=== PATIENT | female | born 1960 | race Caucasian/White ===

== ENCOUNTER 2019-01-11 15:21 | Emergency (ER) | payer BC ==
--- OUTSIDE RECORDS SUMMARY | 2019-01-11 15:31 | XMS REPORT | Continuity of Care Document ---
:1960 External Reference #:[id number] Author Name Rita Bishop Care Team Providers Name Role Phone Prateek Ignacio MD Primary Care Physician Unavailable Payers Date Identification Numbers Payment Provider Subscriber Policy Number: [id number] [employer] Ruthie Sandhu PayID: [id number] [address] [address] [place] [address] Effective: 2001 Policy Number: [id number] BS Of BEKA Sandhu Expires: 2019 Group Number: [id number] [address] [address] Group Name: BS [place] [id number] PayID: [id number] Problems Active Problems Provider Date Refractory migraine without aura Heather Howard M.D. Onset: 11/18/2014 Migraine without aura Heather Howard M.D. Onset: 10/29/2015 Low back pain Miguel Angel Stanford M.D. Onset: 02/07/2018 Resolved Problems Refractory migraine without aura Heather Howard M.D. Onset: 10/29/2015 Resolved: 11/09/2015 Note: no longer refractory....delete. Family History Date Family Member(s) Observation Comments General Diabetes General Hypertension General Heart Disease General GA General Stroke General Cancer Father Diabetes Father Hypertension Father Heart Disease Mother Diabetes Mother Hypertension Siblings 5 First Brother Diabetes First Brother Heart Disease First Brother Stroke Second Brother Heart Disease Second Brother [place] Social History Type Date Description Comments Sex Unknown Marital Status Single Lives With Son Occupation [employer] Tobacco Use Start: Unknown Never Smoked Cigarettes Smoking Status Reviewed: 07/09/18 Never Smoked Cigarettes ETOH Use Occasionally consumes wine Tobacco Use Start: Unknown Patient has never smoked Recreational Drug Use Never Used Drugs Exercise Type/Frequency Does not exercise Allergies, Adverse Reactions, Alerts Active Allergies Reaction Severity Comments Date Penicillin 08/31/2012 Sulfa Antibiotics 08/31/2012 Levaquin 08/31/2012 Doxycycline 04/03/2018 Medications Active Medications SIG Qnty Indications Ordering Date Provider Bupropion HCL ER (XL) 1 by mouth once a 180tabs Zo Roberts, 12/20/2013 day M.D. 150mg Tablets ER 24HR Sumatriptan use one unit as 18units Heather Killian 09/13/2012 5mg/Act directed prn Ritesh Howard Solution migraine Magnesium once a day Unknown Capsules Fluticasone 2 sprays each Edson Propionate nare once daily MD Miguel Angel 50mcg/Act Suspension Ventolin HFA 2 puffs as needed Edson MD Miguel Angel 108(90Base) mcg/Act Aerosol Ranitidine HCL 1 tab by mouth Prateek Ignacio MD 150mg twice daily Capsules Valacyclovir HCL Once daily Unknown 500mg Tablets Loratadine 1 by mouth every Unknown 10mg Tablets day as needed Vitamin D 1 by mouth every Unknown 2000Unit day Capsules Multivitamin Adult 1 by mouth every Unknown day Tablets History Medications Zonisamide take 1 by mouth a 60caps Michael Jesus, 02/07/2018 - 100mg day M.D. 04/23/2018 Capsules Pamelor 1-2 caps every 60caps 346.91 Heather Howard, 11/18/2014 - 10mg night as directed M.D. 04/22/2015 Capsules Bupropion HCL XL 1 po bid 60tabs Heather Howard, 03/01/2013 - M.D. 12/20/2013 150mg Tablets ER 24HR Pamelor 2 - 3 caps every 90caps Heather Howard, 08/31/2012 - 10mg night as directed M.D. 12/12/2013 Capsules Zomig 1 unit intranasal 12units Heather Howard, 08/31/2012 - 5mg as needed M.D. 06/14/2013 Solution Zonisamide 3 caps by mouth 90caps Josuekhang Abdoulaye, 07/03/2012 - 100mg every day M.D. 02/07/2018 Capsules Wellbutrin SR 1 tab by mouth 60tabs Heather Howard, 07/03/2012 - twice a day M.D. 03/01/2013 150mg Tablets ER 12HR Flonase 2 sprays in each 50mcg Heather Howard, 05/01/2012 - 50mcg/Act nostril q am M.D. 08/31/2012 Suspension Estradiol 1 po qd 90tabs Unknown - 0.5mg 01/28/2018 Tablets Omeprazole 1 po qd 30caps Unknown - 40mg 01/25/2013 Capsules Vitamin B-Complex 1 po qd Unknown - 11/02/2016 Tablets Vitamin C 1 po qd Unknown - 500mg 11/02/2016 Tablets Calcium 1 po qd Unknown - 1200mg 01/28/2018 Tablets Omeprazole 2 po qd Unknown - 20mg 04/23/2014 Capsules Omeprazole 1 by mouth every Unknown - 20mg day 05/09/2018 Capsules Vitamin E 3 by mouth every Unknown - 400Unit day 11/02/2016 Capsules Vital Signs Date Vital Result Comment 01/07/2019 1:57pm Height 63 inches 5'3" Weight 220.00 lb BP Systolic Sitting 144 mmHg BP Diastolic Sitting 80 mmHg Pain Level 3 BMI (Body Mass Index) 39.0 kg/m2 07/09/2018 10:07am Height 63 inches 5'3" Weight 220.00 lb Heart Rate 74 /min BP Systolic Sitting 138 mmHg BP Diastolic Sitting 92 mmHg Pain Level 3 BMI (Body Mass Index) 39.0 kg/m2 05/17/2018 9:57am Height 63 inches 5'3" Weight 220.00 lb Heart Rate 60 /min BP Systolic 144 mmHg BP Diastolic 78 mmHg Respiratory Rate 14 /min BMI (Body Mass Index) 39.0 kg/m2 04/03/2018 9:21am Height 63 inches 5'3" Weight 213.00 lb BP Systolic Sitting 124 mmHg BP Diastolic Sitting 80 mmHg Pain Level 4 BMI (Body Mass Index) 37.7 kg/m2 02/07/2018 11:11am Height 63 inches 5'3" Weight 213.25 lb Heart Rate 62 /min BP Systolic Sitting 112 mmHg BP Diastolic Sitting 64 mmHg Respiratory Rate 16 /min O2 % BldC Oximetry 98 % BMI (Body Mass Index) 37.8 kg/m2 11/03/2016 8:33am Height 63 inches 5'3" Weight 204.00 lb Heart Rate 64 /min BP Systolic Sitting 118 mmHg BP Diastolic Sitting 72 mmHg Respiratory Rate 16 /min Pain Level 4 headache BMI (Body Mass Index) 36.1 kg/m2 10/29/2015 8:36am Height 63 inches 5'3" Weight 182.00 lb Heart Rate 66 /min BP Systolic Sitting 120 mmHg BP Diastolic Sitting 70 mmHg Respiratory Rate 17 /min BMI (Body Mass Index) 32.2 kg/m2 04/23/2015 8:41am Height 63 inches 5'3" Weight 173.00 lb Heart Rate 68 /min BP Systolic Sitting 132 mmHg BP Diastolic Sitting 72 mmHg Respiratory Rate 14 /min BMI (Body Mass Index) 30.6 kg/m2 11/18/2014 8:46am Height 63 inches 5'3" Weight 158.00 lb Heart Rate 64 /min BP Systolic Sitting 126 mmHg BP Diastolic Sitting 72 mmHg Respiratory Rate 16 /min BMI (Body Mass Index) 28.0 kg/m2 05/20/2014 11:29am Height 63 inches 5'3" Weight 158.00 lb Heart Rate 60 /min BP Systolic Sitting 112 mmHg BP Diastolic Sitting 70 mmHg Respiratory Rate 12 /min BMI (Body Mass Index) 28.0 kg/m2 12/20/2013 8:35am Height 63 inches 5'3" Weight 203.00 lb Heart Rate 76 /min BP Systolic Sitting 120 mmHg BP Diastolic Sitting 70 mmHg Respiratory Rate 16 /min BMI (Body Mass Index) 36.0 kg/m2 06/14/2013 8:35am Heart Rate 76 /min BP Systolic Sitting 150 mmHg BP Diastolic Sitting 80 mmHg Respiratory Rate 18 /min 01/25/2013 10:23am Heart Rate 75 /min BP Systolic Sitting 118 mmHg BP Diastolic Sitting 76 mmHg Respiratory Rate 15 /min 08/31/2012 10:29am Heart Rate 72 /min BP Systolic Sitting 132 mmHg BP Diastolic Sitting 88 mmHg Respiratory Rate 16 /min Encounters Type Date Location Provider Dx Diagnosis Office Visit 07/09/2018 [facility] M54.5 Low back pain 10:00a Of [place] Velásquez MD M47.896 Other spondylosis, lumbar region M48.061 Spinal stenosis, lumbar region without neurogenic riley Office Visit 05/17/2018 Fabi Michelle G43.009 Migraine w/o 10:00a Neurologic Ritesh Stanford aura, not [facility] intractable, w/o status migrainosus M54.5 Low back pain Office Visit 04/03/2018 9:30a [facility] M54.5 Low back Services [facility] [place] Velásquez MD pain M47.896 Other spondylosis, lumbar region M48.061 Spinal stenosis, lumbar region without neurogenic riley Office 02/07/2018 [place] Michelle G43.009 Migraine w/o Visit 11:15a [facility] Ritesh Stanford aura, not [facility] [employer] [facility] intractable, w/o status migrainosus M54.5 Low back pain Office Visit 11/03/2016 Fabi Killian G43.009 Migraine w/o aura, 8:30a Iris Howard M.D. not intractable, [facility] w/o status migrainosus Office Visit 10/29/2015 Fabi Killian G43.009 Migraine w/o aura, 8:30a Iris Howard M.D. not intractable, [facility] w/o status migrainosus Office Visit 04/23/2015 Fabi Killian G43.009 Migraine w/o aura, 8:45a Iris Howard M.D. not intractable, [facility] [facility] w/o status migrainosus Office Visit 11/18/2014 Fabi Killian 346.91 Migraine Unspec W/ 8:45a Iris Howard M.D. Intractable W/O [facility] Status Migrainosus 346.11 Migraine W/O Aura W/Intractable W/O Status Migrainosus Office Visit 05/20/2014 11:15a Fabi Killian 346.10 Migraine Common Iris Howard M.D. W/O Intractable [facility] W/O Status Migrainosus Office Visit 12/20/2013 12:15p Fabi Killian 346.90 Migraine Unspec Neurologic Ritesh Howard W/O Intractable [facility] [facility] W/O Status Migrainosus Office Visit 06/14/2013 8:30a Fabi Killian 346.90 Migraine Unspec Neurologic Ritesh Howard W/O Intractable [facility] [facility] W/O Status Migrainosus 339.10 Tension Type Headache, Unspecified Office Visit 01/25/2013 10:30a Fabi Killian 346.90 Migraine Unspec Neurologic Ritesh Howard W/O Intractable [facility] W/O Status Migrainosus 339.10 Tension Type Headache, Unspecified Office Visit 08/31/2012 10:30a Fabi Killian 346.91 Migraine Unspec Neurologic Ritesh Howard W/ Intractable [facility] W/O Status Migrainosus Office Visit 07/03/2012 8:30a Fabi Lema.90 Migraine Unspec Neurologic Ritesh Howard W/O Intractable [facility] [facility] W/O Status Migrainosus Office Visit 05/01/2012 8:30a Fabi Lema.[place] Migraine Unspec Neurologic Ritesh Howard W/O Intractable [facility] W/O Status Migrainosus Plan of Treatment Future Appointment(s):07/05/2019 2:30 pm - Andrea Velásquez MD at [facility]01/07/2019 - Andrea Velásquez MDM54.5 Low back painNew Xrays:SP Lumbar Ap//Lat 2-3 Views, Ordered: 01/07/19Follow up:RV in 6 [id number] Other spondylosis, lumbar [id number] Spinal stenosis, lumbar region without neurogenic riley
[2019-01-11 15:43] VITALS: BP 141/82
--- NOTE | 2019-01-25 18:40 | UC ---
Complaint Female HPI - HPI Summary HPI Summary: Urinary frequency and mild burning on urination the past few days, pt would also like blood sugar checked. No fever, chills or back pain. - History Of Current Complaint Chief Complaint: UCGU Stated Complaint: URINARY Time Seen by Provider: 01/11/19 15:42 Hx Obtained From: Patient ?: No Onset/Duration: Gradual Onset Timing: Intermittent Severity Initially: Mild Severity Currently: Mild - Doesn't have burning with every episode of urinating Pain Intensity: 2 Pain Scale Used: 0-10 Numeric Character: Burning Aggravating Factor(s): Urination Alleviating Factor(s): Nothing Associated Signs And Symptoms: Positive: Negative - Allergies/Home Medications Allergies/Adverse Reactions: Allergies Allergy/AdvReac Type Severity Reaction Status Date / Time Penicillins Allergy Rash Verified 01/11/19 15:43 Sulfa (Sulfonamide Allergy Rash Verified 01/11/19 15:43 Antibiotics) doxycycline AdvReac Vomiting Verified 01/11/19 15:43 Home Medications: Home Medications Bupropion XL* [Wellbutrin XL *] 150 mg PO DAILY 01/11/19 [History Confirmed ] raNITIdine HCl [Ranitidine HCl] 75 mg PO DAILY 01/11/19 [History Confirmed 01/11] PMH/Surg Hx/FS Hx/Imm Hx Previously Healthy: Yes - Surgical History Surgical History: Yes Surgery Procedure, Year, and Place: HYSTERECTOMY 2003. GALLBLADDER 2010. RIGHT ROTATOR CUFF SHOULDER REPAIR 2010 - Family History Known Family History: Positive: Non-Contributory - Social History Lives: With Family Alcohol Use: Occasionally Substance Use Type: None Smoking Status (MU): Never Smoked Tobacco Review of Systems All Other Systems Reviewed And Are Negative: Yes Genitourinary: Positive: Dysuria, Frequency - Mild burning on urination, denies abnormal vaginal discharge Is Patient Immunocompromised?: No Physical Exam Triage Information Reviewed: Yes Appearance: Well-Appearing, No Pain Distress, Well-Nourished Vital Signs: Initial Vital Signs Temp 97.9 F 01/11/19 15:40 Pulse 79 01/11/19 15:40 Resp 16 01/11/19 15:40 BP 141/82 01/11/19 15:40 Pulse Ox 99 01/11/19 15:40 Vital Signs Reviewed: Yes Eye Exam: Normal Respiratory Exam: Normal Cardiovascular Exam: Normal Abdomen Description: Positive: Nontender, No Organomegaly, Soft. Negative: CVA Tenderness (R), CVA Tenderness (L), Distended, Guarding Bowel Sounds: Positive: Present Musculoskeletal Exam: Normal Neurological Exam: Normal Psychological Exam: Normal Skin Exam: Normal Complaint Female Dx - Course Course Of Treatment: Pt comfortable here. Will send urine for culture. Pt wanted blood sugar checked which was normal. - Differential Dx/Diagnosis Provider Diagnosis: Dysuria Discharge - Sign-Out/Discharge Documenting (check all that apply): Patient Departure All imaging exams completed and their final reports reviewed: No Studies - Discharge Plan Condition: Fair Disposition: HOME Patient Education Materials: Dysuria (ED) Referrals: Prateek Ignacio MD [Primary Care Provider] - Additional Instructions: Increase fluids, we will call you with the urine culture results. If you continue to have symptoms or worsening abdominal pain then you are to follow-up with your primary care provider, your [facility] provider or you may go to the emergency room for further evaluation. - Billing Disposition and Condition Condition: FAIR Disposition: Home - Attestation Statements Provider Attestation: Per institutional requirements, I have reviewed the chart, however, I was not consulted specifically or made aware of this patient by the midlevel provider. I did not personally evaluate, interact with , or disposition this patient.
== END 2019-01-11 16:11 | disposition home or self-care (01) ==
LOC: UCCORT 15:21
DX: R30.0 Dysuria (principal); Z88.0 Allergy status to penicillin; Z88.2 Allergy status to sulfonamides; Z88.1 Allergy status to other antibiotic agents
CPT/HCPCS: 81003; 87086; 99211; G0463

== ENCOUNTER 2019-01-31 18:39 | Emergency (ER) | payer BC ==
[2019-01-31 19:15] VITALS: BP 193/84
--- NOTE | 2019-01-31 19:42 | UC ---
UC General HPI - HPI Summary HPI Summary: 58-year-old female comes in with a chief complaint of bilateral pedal edema which started yesterday. With the edema she feels that there is some pain in both lower legs which is worse when she walks. Today she's been having some shortness of breath and intermittent headaches and blurred vision also. No abdominal pain. Patient reports that she's had her kidney function checked past and what she remembers is that her kidney function is worsening. No prior history of hypertension. She does take ibuprofen for her chronic back pain. - History of Current Complaint Chief Complaint: UCGeneralIllness Stated Complaint: FEET ANKLE SWELLING Time Seen by Provider: 01/31/19 19:21 Pain Intensity: 4 - Allergy/Home Medications Allergies/Adverse Reactions: Allergies Allergy/AdvReac Type Severity Reaction Status Date / Time Penicillins Allergy Rash Verified 01/31/19 19:07 Sulfa (Sulfonamide Allergy Rash Verified 01/31/19 19:07 Antibiotics) doxycycline AdvReac Vomiting Verified 01/31/19 19:07 Home Medications: Home Medications ValACYclovir (*) [Valtrex 1 GM(*)] 1 tab PO DAILY 01/31/19 [History Confirmed ] PMH/Surg Hx/FS Hx/Imm Hx Previously Healthy: Yes GI/ History: Gastroesophageal Reflux - Surgical History Surgical History: Yes Surgery Procedure, Year, and Place: HYSTERECTOMY 2003. GALLBLADDER 2010. RIGHT ROTATOR CUFF SHOULDER REPAIR 2010 - Family History Known Family History: Positive: Non-Contributory - Social History Alcohol Use: Rare Substance Use Type: None Smoking Status (MU): Never Smoked Tobacco Review of Systems All Other Systems Reviewed And Are Negative: Yes Constitutional: Positive: Negative Skin: Positive: Negative Eyes: Positive: Blurred Vision ENT: Positive: Negative Respiratory: Positive: Shortness Of Breath Cardiovascular: Positive: Negative Gastrointestinal: Positive: Negative Motor: Positive: Negative Neurovascular: Positive: Negative Musculoskeletal: Positive: Edema Neurological: Positive: Headache Psychological: Positive: Negative Is Patient Immunocompromised?: No Physical Exam Triage Information Reviewed: Yes Appearance: Well-Appearing, No Pain Distress, Well-Nourished Vital Signs: Initial Vital Signs Temp 98.5 F 01/31/19 19:09 Pulse 76 01/31/19 19:09 Resp 16 01/31/19 19:09 BP 193/84 01/31/19 19:09 Pulse Ox 100 01/31/19 19:09 Vital Signs Reviewed: Yes Eye Exam: Normal Eyes: Positive: Conjunctiva Clear, Other: - PERRLA/EOMI ENT: Positive: Pharynx normal Respiratory: Positive: Lungs clear, Normal breath sounds, No respiratory distress Cardiovascular: Positive: RRR Musculoskeletal: Positive: Strength Intact, ROM Intact, Edema @ - B/L LE Neurological: Positive: Alert Psychological Exam: Normal Psychological: Positive: Age Appropriate Behavior Skin Exam: Normal Course/Dx - Course Course Of Treatment: Because of the elevated blood pressure with PO2 edema the headache and the blurred vision and I recommended further evaluation emergency department patient will go by POV. I spoke to the [place] emergency department provider Dr. Bob. - Diagnoses Provider Diagnosis: Hypertension, Headache, Blurred vision, Pedal edema Discharge - Sign-Out/Discharge Documenting (check all that apply): Patient Departure All imaging exams completed and their final reports reviewed: No Studies - Discharge Plan Condition: Stable Disposition: HOME-RECOMMEND TO ED Patient Education Materials: Acute Headache (ED), Leg Edema (ED), Hypertension (ED), Blurred Vision (ED) Referrals: Prateek Ignacio MD [Primary Care Provider] - Additional Instructions: GO DIRECTLY TO THE EMERGENCY DEPARTMENT FOR FURTHER EVALUATION. - Billing Disposition and Condition Condition: STABLE Disposition: Home-Recommend to ED
== END 2019-01-31 19:47 | disposition home health service (06) ==
LOC: UCCORT 18:39
DX: I10 Essential (primary) hypertension (principal); R51 Headache; H53.8 Other visual disturbances; R60.9 Edema, unspecified
CPT/HCPCS: 99212; G0463

== ENCOUNTER 2022-04-15 06:42 | Observation (INO) ==
[~2022-04-15 06:42] MED LIST: Buffered Lidocaine 1% SYRIN 1 ml INTRADERM ONE; Lactated Ringers 1000 ml BAG 1,000 ML IV SCH; Scopolamine 1 mg/72hr PATCH TRANSDERM ONE
[2022-04-15] MEDS ORDERED: Scopolamine 1 mg/72hr PATCH ONE (07:09)
[2022-04-15] MEDS ORDERED: Clindamycin 900 MG/D5W BAG 900 MG/50 ML BAG IVPB ONE (07:10)
[2022-04-15] MEDS ORDERED: HYDROmorphone 1 MG/1 ML SYRINGE IV PRN (08:16)
[2022-04-15] MEDS ORDERED: Prochlorperazine 5 mg/ml 2 ml VIAL (10 mg) IV PRN (08:16)
[2022-04-15] MEDS ORDERED: Naloxone 0.4 mg VIAL 0.4 mg/ml 1 ml VIAL IV PRN (08:16)
[2022-04-15] MEDS ORDERED: Midazolam 2 mg/2 ml VIAL 1 mg/ml 2 ml VIAL (2 mg) ONE (08:40)
[2022-04-15] MEDS ORDERED: ROPIVACAINE 5 MG/ML 30 ML BTL (0.5%) ONE ×2 (08:40→09:17)
[2022-04-15] MEDS ORDERED: fentaNYL 100 mcg/2 ml 50 MCG/ML VIAL ONE (08:40)
[2022-04-15] MEDS ORDERED: Dexamethasone IV 4 MG/ML VIAL 1 ml VIAL ONE (09:04)
[2022-04-15] MEDS ORDERED: Lidocaine 2% PF 5 ML VIAL ONE (09:04)
[2022-04-15] MEDS ORDERED: Ondansetron 4 mg VIAL 2 MG/ML 2 ml VIAL ONE (09:04)
[2022-04-15] MEDS ORDERED: Rocuronium 50 mg VIAL 10 mg/ml 5 ml VIAL (50 mg) ONE (09:04)
[2022-04-15] MEDS ORDERED: Propofol 10 MG/ML 20 ML BTL ONE ×4 (09:04→11:59)
[2022-04-15] MEDS ORDERED: Glycopyrrolate IV 0.2 MG/ML 1 ML VIAL ONE (09:57)
[2022-04-15] MEDS ORDERED: Phenylephrine IV 10 MG/ML 1 ml VIAL ONE (10:30)
[2022-04-15] MEDS ORDERED: Sevoflurane BOTTLE ONE (10:40)
[2022-04-15] MEDS ORDERED: Desflurane 240 ML INH ONE (10:40)
[2022-04-15] MEDS ORDERED: Morphine 2 MG/ML SYRINGE IV PRN (11:06)
[2022-04-15] MEDS ORDERED: Magnesium Hydroxide LIQ 30 ML UDC PO PRN (11:06)
[2022-04-15] MEDS ORDERED: Ondansetron ODT 4 mg TAB 4 MG TAB PO PRN (11:06)
[2022-04-15] MEDS ORDERED: Ondansetron 4 mg VIAL 2 MG/ML 2 ml VIAL IV PRN (11:06)
[2022-04-15] MEDS ORDERED: Lactulose 30 ml UDC PO PRN (11:06)
[2022-04-15] MEDS ORDERED: Lactated Ringers 1000 ml BAG 1,000 ML IV SCH (12:00)
[2022-04-15] MEDS: Clindamycin 600 MG/D5W BAG 600 MG/50 ML BAG IV SCH (16:10)
[2022-04-15] MEDS: Magnesium Hydroxide LIQ 30 ML UDC PO SCH (20:13)
[2022-04-16] MEDS: Clindamycin 600 MG/D5W BAG 600 MG/50 ML BAG IV SCH ×2 (02:05→08:59)
[2022-04-16 05:32] LABS: Hematocrit 33 % (35-47); Hemoglobin 10.9 g/dL (12.0-16.0); Mean Platelet Volume 8.8 fL (7.4-10.4); Platelet Count 231 10^3/uL (150-450)
[2022-04-16 05:58] LABS: Calcium 8.9 mg/dL (8.6-10.3); Potassium 4.3 mmol/L (3.5-5.0); eGFR CKD-EPI 52.2 (>60)
[2022-04-16] MEDS: Magnesium Hydroxide LIQ 30 ML UDC PO SCH (08:59)
[2022-04-16] MEDS ORDERED: Colestipol 1 gm TAB (NF) PO SCH (09:00)
[2022-04-16] MEDS ORDERED: Vitamin THERAPEUTIC TAB PO SCH (09:00)
[2022-04-16 11:40] VITALS: BP 112/62
== END 2022-04-16 12:55 | disposition home or self-care (01) ==
LOC: AA 06:42 → INTOOBSV 06:42 → SSU 14:00
PROVIDERS: ADMIT Orthopaedic Surgery Adult Reconstructive Orthopaedic Surgery; ATTEND Orthopaedic Surgery Adult Reconstructive Orthopaedic Surgery